=== PATIENT | male | born 1980 | race Caucasian/White ===

== ENCOUNTER 2018-06-08 19:44 | Inpatient (IN) | payer OTHER ==
[~2018-06-08] VITALS: Ht 165.1 cm; Wt 77.7 kg
[2018-06-08] MEDS ORDERED: ACETAMINOPHEN 500 MG TAB PO STA (23:19)
[2018-06-08] MEDS ORDERED: IBUPROFEN 600 MG TAB PO ONE (23:30)
[2018-06-09] MEDS ORDERED: SODIUM CHLORIDE 0.9% 1L BAG IV* STA (02:27)
[2018-06-09] MEDS ORDERED: CEFTRIAXONE 1 GM/50 ML (PMX) 50 ML IVPB STA (02:27)
--- NOTE | 2018-06-09 02:30 | ERD ---
ER Documentation Chief Complaint Chief Complaint URINE PROBLEM, EAR PAIN, FEVER HPI History of Present Illness: Patient coming in today with complaint of painful urination, decreased urination, ear pain, fever, right flank pain, decreased appetite, fatigue. She reporting episode of night sweats and drenching his close approximately 3 days ago due to fever. Patient reports being diagnosed with urinary tract infection approximately 3 weeks ago by PCP, unknown antibiotic given. Patient reports completing course of antibiotics but fevers persisted, so he went back to PCP 1 week ago; patient was referred to urologist but unable to get an appointment until August. patient reports he did feel he had complete resolution of urinary tract infection for completion of antibiotics course. Patient denies cold-like symptoms, shortness of breath, chest pain. Patient reports feeling fatigue since approximately March 2018; it was thought to be cardiac related, reports he had to have a cardiac cath and they stated he did not have any blockages in heart so they continue him on hypertension medications. Patient reports PCP informed him that flank pain is more than likely related to musculoskeletal due to patient having to lift lots of heavy items at work. At home pharmacological/nonpharmacological treatment for symptoms: denies Denies social concerns; Denies recent foreign travel ROS All systems reviewed and are negative except as per history of present illness. Allergies Allergies: Coded Allergies: No Known Allergy (Unverified , 06/08/18) PMhx/Soc History of Surgery: Yes (GUM SX 1 WEEK AGO) Hx Cardiac Disorders: Yes (HTN, HLD) Hx Alcohol Use: No Hx Substance Use: No Hx Tobacco Use: No Smoking Status: Never smoker FmHx Family History: diabetes, coronary disease (As you know when I think about it then do looks sick he looks sick) Physical Exam Vitals Vital Signs Date Temp Pulse Resp B/P (MAP) Pulse Ox O2 O2 Flow FiO2 Time Delivery Rate 06/09/18 98.2 76 18 124/67 99 Room Air 02:49 (86) 06/08/18 100.1 91 18 150/86 99 20:14 (107) Physical Exam GENERAL: The patient is well-nourished, in no acute distress, HEENT: Atraumatic. Conjunctivae are pink. Pupils equal, round, and reactive to light. There is no scleral icterus. No erythema to tympanic membranes, no bulging, no perforation. Oropharynx clear without tonsillar exudate. NECK: Full range of motion. C-spine is soft and supple. There is no meningismus. There is cervical lymphadenopathy. CHEST: Clear to auscultation bilaterally. There are no rales, wheezes or rhonchi. HEART: Regular rate and rhythm. No murmurs, clicks, rubs or gallops. ABDOMEN: Soft, non tender, non distended. Normal bowel sounds EXTREMITIES: No cyanosis, or edema NEURO: Awake and alert, appropriate for age, no irritable cry Result Diagram: 06/09/18 0111 06/09/18 0111 Results 24 hrs Laboratory Tests Test 06/08/18 23:27 06/09/18 01:11 06/09/18 02:35 Urine Color YELLOW Urine Clarity SLIGHTLY CLOUDY Urine pH 6.0 Urine Specific [place] 1.004 Urine Ketones NEGATIVE mg/dL Urine Nitrite NEGATIVE mg/dL Urine Bilirubin NEGATIVE mg/dL Urine Urobilinogen NEGATIVE mg/dL Urine Leukocyte Esterase NEGATIVE Maurisio/ul Urine Microscopic RBC 6 /HPF Urine Microscopic WBC 3 /HPF Urine Bacteria FEW /HPF Urine Mucus FEW /HPF Urine Hemoglobin 1+ mg/dL Urine Glucose NEGATIVE mg/dL Urine Total Protein NEGATIVE mg/dl White Blood Count 56.8 10^3/ul Red Blood Count 3.21 10^6/ul Hemoglobin 9.6 g/dl Hematocrit 29.8 % Mean Corpuscular Volume 92.8 fl Mean Corpuscular Hemoglobin 29.9 pg Mean Corpuscular 32.2 g/dl Hemoglobin Concent Red Cell Distribution Width 14.4 % Platelet Count 101 10^3/UL Mean Platelet Volume 9.0 fl Immature Granulocytes % 0.000 % Neutrophils % % Segmented Neutrophils 3 % % (Manual) Lymphocytes % % Lymphocytes % (Manual) 22 % Monocytes % % Monocytes % (Manual) 64 % Eosinophils % % Basophils % % Blast Cells % (Manual) 11.0 % Nucleated Red Blood Cells % 0.0 /100WBC Immature Granulocytes # 0.000 10^3/ul Neutrophils # 10^3/ul Lymphocytes (Manual) 12.4 10^3/ul Lymphocytes # 10^3/ul Monocytes # 10^3/ul Monocytes # (Manual) 36.3 10^3/ul Eosinophils # 10^3/ul Basophils # 10^3/ul Nucleated Red Blood Cells # 10^3/ul Platelet Estimate DECREASED Giant Platelets 1 % Sodium Level 141 mmol/L Potassium Level 3.6 mmol/L Chloride Level 100 mmol/L Carbon Dioxide Level 30 mmol/L Anion Gap 11 Blood Urea Nitrogen 20 mg/dl Creatinine 2.56 mg/dl Est Glomerular Filtrat 28 mL/min Rate mL/min Glucose Level 114 mg/dl Calcium Level 8.9 mg/dl Total Bilirubin 0.1 mg/dl Direct Bilirubin 0.00 mg/dl Indirect Bilirubin 0.1 mg/dl Aspartate Amino 27 IU/L Transf (AST/SGOT) Alanine 27 IU/L Aminotransferase (ALT/SGPT) Alkaline Phosphatase 70 IU/L Total Protein 7.9 g/dl Albumin 3.9 g/dl Globulin 4.00 g/dl Albumin/Globulin Ratio 0.97 Lipase 97 U/L Prothrombin Time 15.2 Sec Prothrombin Time Ratio 1.2 INR International 1.19 Normalized Ratio Activated Partial Thromboplast 33.0 Sec Time Lactic Acid Level 0.9 mmol/L Troponin I < 0.012 ng/ml Current Medications Medications Dose Sig/Daryl Start Time Status Last (Trade) Ordered Route PRN Stop Time Admin Dose Reason Admin 1,000 mg ONCE STAT 06/08/18 DC 06/08/18 Acetaminophen PO 23:19 23:30 (Tylenol 06/08/18 23:21 Tab) Ibuprofen 600 mg ONCE ONCE 06/08/18 DC 06/08/18 (Motrin) PO 23:30 23:30 06/08/18 23:31 Sodium 2,340 ml BOLUS OVER 2 06/09/18 DC 06/09/18 Chloride HOURS STAT 02:27 02:49 (NS) IV* 06/09/18 02:38 Ceftriaxone 50 ml @ ONCE STAT 06/09/18 DC 06/09/18 Sodium 100 mls/hr IVPB 02:27 02:49 06/09/18 02:56 Procedures/MDM ED course includes a thorough examination and history. Medications: Ibuprofen and acetaminophen for fever Imaging: ---- Labs: Urinalysis Patient reassessment: Urinalysis showing RBCs, hemoglobin, small amount of white blood cells; no concern for urinary tract infection. Due to patient with persistent right flank pain and unable to reproduce pain with palpation or percussion, will do blood labs and CT abdomen pelvis. Suspicion for infectious kidney stone due to RBCs and blood and persistent fevers. ED physician consultation @ 02:20: Spoke to Dr. Zohbarbian regarding lab findings. Significant leukocytosis. CT results pending, multiple calls made to [facility]. Will initiate sepsis protocol. Patient updated of plan of care. ED physician consultation at 0330: CT Results reviewed with ED attending physician. Plan of care discussed for admission. Will decrease IV fluids administration to only 1000 mL of NS, nurse is notified. Patient reassessment 04:15: Spoke to patient regarding CT results. Patient agrees with plan of care of hospitalization. Patient reports able to urinate, has had 2 episodes of urination since IV fluids administration. No respiratory distress, nontoxic. Disposition for admission. Departure Diagnosis: Primary Impression: Leukocytosis Leukocytosis type: unspecified Qualified Codes: D72.829 - Elevated white blood cell count, unspecified Additional Impressions: DAVE (acute kidney injury) Lung nodule < 6cm on CT Condition: ANGEL Walters NP Jun 09, 2018 02:30
[2018-06-09] MEDS ORDERED: HYDROCODONE/APAP (5/325) TAB PO PRN (09:00)
[2018-06-09] MEDS ORDERED: ACETAMINOPHEN 500 MG TAB PO PRN (09:00)
[2018-06-09] MEDS ORDERED: ENOXAPARIN 30 MG/0.3 ML SYG SC SCH (09:00)
[2018-06-09] MEDS ORDERED: ONDANSETRON 4 MG INJ IV PRN (09:00)
[2018-06-09] MEDS ORDERED: DOXY100T20 PO (09:48)
[2018-06-09] MEDS ORDERED: AMLO2.5T78 PO (09:49)
[2018-06-09] MEDS ORDERED: ATOR40TA68 PO (09:49)
[2018-06-09] MEDS ORDERED: ASPI-817 PO (09:49)
[2018-06-09] MEDS ORDERED: LOSA50TA14 PO (09:50)
[2018-06-09 10:23] VITALS: Ht 165.1 cm; Wt 77.7 kg
[2018-06-09] MEDS: SOD CHLORIDE 0.45% 1,000 ML IV SCH ×2 (13:10→19:30)
[2018-06-09 13:37] VITALS: BP 119/62; PULSE 87; RESP 18
--- NOTE | 2018-06-09 14:55 | QN ---
Documentation Comment ID consult requested. Dr. Prado will see pt later today or in AM. Thank you! RIO VELIZ NP Jun 09, 2018 14:55
[2018-06-09] MEDS: CHLORHEXIDINE GLUCONATE 15 ML UD CUP MT SCH ×2 (15:10→21:29)
[2018-06-09] MEDS ORDERED: SPECIAL NON-STANDARD MEDICATION IV STA (15:47)
--- NOTE | 2018-06-09 15:47 | CONS ---
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 # Acute myeloid leukemia -Reviewed smear with Dr. Alan and confirmed it is an acute leukemic process likely myeloid. -Increased IVF to 175 ccs. -Patient with elevated creatinine and uric acid is in tumor lysis syndrome. Nephrology is on board. -Placed patient on allopurinol 300 mg po qdaily and will give one dose of rasburicase 7.5 mg IV x 1. -Discussed with patient that he will need induction chemotherapy at a higher level of care tertiary center. -Discussed with patient that if he tolerates induction therapy; prognosis is fair and he can be cured with chemotherapy and bone marrow transplant. -Discussed that patient also had an increased risk of infection due to acute chandana kemia. # Tumor lysis syndrome -Continue IVF 175 ccs. -Rasburicase given. -Allopurinol 300 mg po qdaily. -Nephrology on board. -Transfer to higher level of care tertiary havre. Thank you to Dr. Bermudez for allowing us to participate in the care of this patient. Please feel free to contact our team for further questions. Consultation Date/Type/Reason Admit Date/Time Jun 09, 2018 at 03:32 Date of Consultation: Jun 09, 2018 Type of Consult Hematology/Oncology Reason for Consultation leukocytosis concern for AML Date/Time of Note DATE: 06/09/18 TIME: 15:39 Hx of Present Illness 38 yo M with PMH HTN was in his normal state of health until three weeks prior to admission when he started having night sweats, fevers, along with chills with dysuria. Patient stated that he thought he had a urinary tract infection and went to his PCP who gave him antibiotics but this did not take away any symptoms. The patient states he also developed a gum infection 2-3 days prior to infection and he had to have surgery for this. He denies any bone pain. He states he still has dysuria upon urination at this time. Denies any bleeding or bruising. Denies any appetite or weight loss. Denies any headaches, chest pain or shortness of breath. Upon admission it was noted that his WBC was 52k with predominant monocytes along with 20% blasts. Dr. Diamond evaluated the peripheral smear with confirmation that it is an evolving likely AML with 20% blasts. Patient also with thrombocytopenia. CT scan showed some slightly enlarged LND in the mediastinal and inguinal areas with splenomegaly with a small nodule in the lung. PMH: as above PSxH: gum surgery SH: Denies tobacco, ETOH, or IVDA. FH: Sister has some type of cancer near the heart. Meds: see list All: NKDA Constitutional: chills, diaphoresis, febrile Eyes: no complaints ENT: no complaints Respiratory: no complaints Cardiovascular: no complaints Gastrointestinal: no complaints Genitourinary: dysuria Musculoskeletal: no complaints Skin: no complaints Neurologic: no complaints Endocrine: no complaints Lymphatic: no complaints Psychological: no complaints, nl mood/affect Immunologic: no complaints Past Medical History Home Meds Reported Medications Losartan Potassium* (Losartan Potassium*) 50 Mg Tablet, 50 MG PO DAILY, TAB 06/09/18 Atorvastatin* (Atorvastatin*) 40 Mg Tablet, 40 MG PO QHS, #30 TAB 06/09/18 Aspirin* (Aspirin* EC) 81 Mg Tablet.dr, 81 MG PO DAILY, TAB 06/09/18 Amlodipine Besylate* (Amlodipine Besylate*) 2.5 Mg Tablet, 2.5 MG PO DAILY, #30 TAB 06/09/18 Doxycycline Hyclate* (Doxycycline Hyclate*) 100 Mg Tablet.dr, 100 MG PO BID, TAB for 10 days,start date 05/31/18 06/09/18 Medications Current Medications Sodium Chloride 1,000 ml @ 125 mls/hr Q8H IV Last administered on 06/09/18at 13:10; Admin Dose 100 MLS/HR; Start 06/09/18 at 09:00 Ceftriaxone Sodium 50 ml @ 100 mls/hr Q24H IVPB ; Start 06/10/18 at 05:00 Acetaminophen (Tylenol Tab) 500 mg Q4H PRN PO MILD PAIN(1-3)OR ELEVATED TEMP; Start 06/09/18 at 09:00 Ondansetron HCl (Zofran Inj) 4 mg Q6H PRN IV NAUSEA AND/OR VOMITING; Start 06/09/18 at 09:00 Acetaminophen/ Hydrocodone Bitart ([place] (5/325)) 1 tab Q4H PRN PO MODERATE PAIN LEVEL 4-6; Start 06/09/18 at 09:00 Chlorhexidine Gluconate (Peridex) 15 ml BID MT Last administered on 06/09/18at 15:10; Admin Dose 15 ML; Start 06/09/18 at 12:30 Allopurinol (Zyloprim) 300 mg DAILY PO ; Start 06/09/18 at 15:30 Allergies: Coded Allergies: No Known Allergy (Unverified , 06/09/18) Social History Alcohol Use: none Smoking Status: Never smoker Exam/Review of Systems Exam Vitals Vital Signs Date Temp Pulse Resp B/P (MAP) Pulse Ox O2 O2 Flow FiO2 Time Delivery Rate 06/09/18 99.8 87 18 119/62 95 13:37 (81) 06/09/18 Room Air 09:30 Constitutional: alert, oriented, well developed Psych: no complaints, nl mood/affect Head: normocephalic, atraumatic Eyes: nl conjunctiva, EOMI, nl lids, nl sclera, PERRL ENMT: nl external ears & nose, nl lips & teeth, nl nasal mucosa & septum Neck: other (mild lymphadenopathy) Respiratory: clear to auscultation, normal air movement Cardiovascular: regular rate and rhythm, nl pulses Gastrointestinal: hepatomegaly, splenomegaly Musculoskeletal: nl extremities to inspection, nl gait and stance Extremities: normal pulses Neurological: HYDROGEN TREATER II-XII intact, nl mental status, nl speech, nl strength Skin: nl turgor; No rash or lesions Lymph: enlarged Results Result Diagram: 06/09/18 0111 06/09/18 0111 Results 24hrs Laboratory Tests Test 06/08/18 23:27 06/09/18 01:11 06/09/18 02:35 06/09/18 05:24 Urine Color YELLOW Urine Clarity SLIGHTLY CLOUDY A Urine pH 6.0 Urine Specific 1.004 [place] Urine Ketones NEGATIVE Urine Nitrite NEGATIVE Urine Bilirubin NEGATIVE Urine NEGATIVE Urobilinogen Urine Leukocyte NEGATIVE Esterase Urine 6 H Microscopic RBC Urine 3 Microscopic WBC Urine Bacteria FEW A Urine Mucus FEW A Urine Hemoglobin 1+ H Urine Glucose NEGATIVE Urine Total NEGATIVE Protein White Blood 56.8 H Count Red Blood Count 3.21 L Hemoglobin 9.6 L Hematocrit 29.8 L Mean Corpuscular 92.8 Volume Mean Corpuscular 29.9 Hemoglobin Mean Corpuscular 32.2 Hemoglobin Grisel nt Red Cell 14.4 Distribution Width Platelet Count 101 L Mean Platelet 9.0 Volume Immature 0.000 L Granulocytes % Neutrophils % Segmented 0 L Neutrophils % (Manual) Lymphocytes % Lymphocytes % 8 L (Manual) Monocytes % Monocytes % 72 H (Manual) Eosinophils % Basophils % Blast Cells % 20.0 H (Manual) Nucleated Red 0.0 Blood Cells % Immature 0.000 Granulocytes # Neutrophils # Lymphocytes 4.5 H (Manual) Lymphocytes # Monocytes # Monocytes # 40.8 H (Manual) Eosinophils # Basophils # Nucleated Red Blood Cells # Pathologist Review (Hematolo gy) Platelet DECREASED Estimate Giant Platelets 1 H Path Consult LESLIE DIAMOND Signing Patholog MD ist Sodium Level 141 Potassium Level 3.6 Chloride Level 100 Carbon Dioxide 30 Level Anion Gap 11 Blood Urea 20 Nitrogen Creatinine 2.56 H Est Glomerular 28 L Filtrat Rate mL/min Glucose Level 114 Calcium Level 8.9 Total Bilirubin 0.1 L Direct Bilirubin 0.00 Indirect 0.1 Bilirubin Aspartate Amino 27 Transf (AST/SGOT ) Alanine 27 Aminotransferase (ALT/SGPT) Alkaline 70 Phosphatase Total Protein 7.9 Albumin 3.9 Globulin 4.00 H Albumin/Globulin 0.97 Ratio Lipase 97 Prothrombin Time 15.2 H Prothrombin Time 1.2 Ratio INR 1.19 International Normalized Ratio Activated 33.0 Partial Thrombop last Time Lactic Acid 0.9 1.0 Level Troponin I < 0.012 Uric Acid 11.2 H Medications Medication Current Medications Sodium Chloride 1,000 ml @ 125 mls/hr Q8H IV Last administered on 06/09/18at 13:10; Admin Dose 100 MLS/HR; Start 06/09/18 at 09:00 Ceftriaxone Sodium 50 ml @ 100 mls/hr Q24H IVPB ; Start 06/10/18 at 05:00 Acetaminophen (Tylenol Tab) 500 mg Q4H PRN PO MILD PAIN(1-3)OR ELEVATED TEMP; Start 06/09/18 at 09:00 Ondansetron HCl (Zofran Inj) 4 mg Q6H PRN IV NAUSEA AND/OR VOMITING; Start 06/09/18 at 09:00 Acetaminophen/ Hydrocodone Bitart ([place] (5/325)) 1 tab Q4H PRN PO MODERATE PAIN LEVEL 4-6; Start 06/09/18 at 09:00 Chlorhexidine Gluconate (Peridex) 15 ml BID MT Last administered on 06/09/18at 15:10; Admin Dose 15 ML; Start 06/09/18 at 12:30 Allopurinol (Zyloprim) 300 mg DAILY PO ; Start 06/09/18 at 15:30 AVINASH CLEMENT DO Jun 09, 2018 15:47
--- NOTE | 2018-06-09 16:24 | CONS ---
Assessment/Plan Assessment/Plan Assessment/Plan (Daily) 1. acute kidney injury due to ATN from Tumour lysis 2. Hyperuricemia from tumour lysis 3. Possible UTI 4. 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 Leucocytosis due to acute AML 6. h/O HTN 7. H/o HL Plan: pt is seen in Med/surge floor, BP was stable, afebrile, S/p H & O evaluation , agree with Rasburicase and Allopurinol due to tumour lysis syndrome and severe hyperuricemia Urine culture Urine studies including urine Na, urine prot/cr ration, urine eosinophisl, CK t otal Renal US to assess for CKD, to rule out hydronephrosis Thanks for consultation, I will continue to follow up Consultation Date/Type/Reason Admit Date/Time Jun 09, 2018 at 03:32 Date of Consultation: Jun 09, 2018 Type of Consult NEPHROLOGY Reason for Consultation Acute kidney injury, Tumour Lysis syndrome Requesting Provider: VINOD VALENCIA MD Date/Time of Note DATE: 06/09/18 TIME: 16:23 Hx of Present Illness 38 yo M with PMH HTN with fevers, chills, and night sweats x 3 weeks with dysuria and recent gum infection admitted to the hospital with WBC: 58 k with 20% blasts 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 pt denies h/o NSAID use, no h/o CKD/kindey stone/kiney cyst no blood in urine, no back pain, flank pain and chest pain Constitutional: febrile, other (chills ) Eyes: no complaints ENT: no complaints Respiratory: shortness of breath Cardiovascular: no complaints Gastrointestinal: pain, constipation, nausea Genitourinary: dysuria, flank pain Musculoskeletal: no complaints Skin: no complaints Neurologic: no complaints Endocrine: no complaints Lymphatic: no complaints Psychological: no complaints Immunologic: no complaints Past Medical History Medical History: high cholesterol, hypertension, other (h/o heart attack as per patient but no details availabl e) Home Meds Reported Medications Losartan Potassium* (Losartan Potassium*) 50 Mg Tablet, 50 MG PO DAILY, TAB 06/09/18 Atorvastatin* (Atorvastatin*) 40 Mg Tablet, 40 MG PO QHS, #30 TAB 06/09/18 Aspirin* (Aspirin* EC) 81 Mg Tablet.dr, 81 MG PO DAILY, TAB 06/09/18 Amlodipine Besylate* (Amlodipine Besylate*) 2.5 Mg Tablet, 2.5 MG PO DAILY, #30 TAB 06/09/18 Doxycycline Hyclate* (Doxycycline Hyclate*) 100 Mg Tablet.dr, 100 MG PO BID, TAB for 10 days,start date 05/31/18 06/09/18 Medications Current Medications Sodium Chloride 1,000 ml @ 125 mls/hr Q8H IV Last administered on 06/09/18at 13:10; Admin Dose 100 MLS/HR; Start 06/09/18 at 09:00 Ceftriaxone Sodium 50 ml @ 100 mls/hr Q24H IVPB ; Start 06/10/18 at 05:00 Acetaminophen (Tylenol Tab) 500 mg Q4H PRN PO MILD PAIN(1-3)OR ELEVATED TEMP; Start 06/09/18 at 09:00 Ondansetron HCl (Zofran Inj) 4 mg Q6H PRN IV NAUSEA AND/OR VOMITING; Start 06/09/18 at 09:00 Acetaminophen/ Hydrocodone Bitart ([place] (5/325)) 1 tab Q4H PRN PO MODERATE PAIN LEVEL 4-6; Start 06/09/18 at 09:00 Chlorhexidine Gluconate (Peridex) 15 ml BID MT Last administered on 06/09/18at 15:10; Admin Dose 15 ML; Start 06/09/18 at 12:30 Allopurinol (Zyloprim) 300 mg DAILY PO ; Start 06/09/18 at 15:30 Rasburicase 7.5 mg/Sodium Chloride 50 ml @ 100 mls/hr ONCE IVPB ; Start 06/09/18 at 18:00; Stop 06/09/18 at 23:59 Allergies: Coded Allergies: No Known Allergy (Unverified , 06/09/18) Past Surgical History Past Surgical Hx: no surgical history Family History Significant Family History: no pertinent family hx Social History Alcohol Use: none Smoking Status: Never smoker Drug Use: none Exam/Review of Systems Exam Vitals Vital Signs Date Temp Pulse Resp B/P (MAP) Pulse Ox O2 O2 Flow FiO2 Time Delivery Rate 06/09/18 99.8 87 18 119/62 95 13:37 (81) 06/09/18 Room Air 09:30 Constitutional: alert Psych: no complaints Head: normocephalic Eyes: nl conjunctiva ENMT: nl external ears & nose Neck: supple, non-tender Respiratory: clear to auscultation, normal air movement, diminished breath sounds Cardiovascular: regular rate and rhythm, nl pulses Gastrointestinal: soft, non-tender Musculoskeletal: nl extremities to inspection, muscle weakness Extremities: normal pulses Neurological: MONKEY BREEDER II-XII intact, nl mental status, nl speech, nl strength Skin: nl turgor Lymph: nl lymph nodes Results Result Diagram: 06/09/18 0111 06/09/18 0111 Results 24hrs Laboratory Tests Test 06/08/18 23:27 06/09/18 01:11 06/09/18 02:35 06/09/18 05:24 Urine Color YELLOW Urine Clarity SLIGHTLY CLOUDY A Urine pH 6.0 Urine Specific 1.004 [place] Urine Ketones NEGATIVE Urine Nitrite NEGATIVE Urine Bilirubin NEGATIVE Urine NEGATIVE Urobilinogen Urine Leukocyte NEGATIVE Esterase Urine 6 H Microscopic RBC Urine 3 Microscopic WBC Urine Bacteria FEW A Urine Mucus FEW A Urine Hemoglobin 1+ H Urine Glucose NEGATIVE Urine Total NEGATIVE Protein White Blood 56.8 H Count Red Blood Count 3.21 L Hemoglobin 9.6 L Hematocrit 29.8 L Mean Corpuscular 92.8 Volume Mean Corpuscular 29.9 Hemoglobin Mean Corpuscular 32.2 Hemoglobin Grisel nt Red Cell 14.4 Distribution Width Platelet Count 101 L Mean Platelet 9.0 Volume Immature 0.000 L Granulocytes % Neutrophils % Segmented 0 L Neutrophils % (Manual) Lymphocytes % Lymphocytes % 8 L (Manual) Monocytes % Monocytes % 72 H (Manual) Eosinophils % Basophils % Blast Cells % 20.0 H (Manual) Nucleated Red 0.0 Blood Cells % Immature 0.000 Granulocytes # Neutrophils # Lymphocytes 4.5 H (Manual) Lymphocytes # Monocytes # Monocytes # 40.8 H (Manual) Eosinophils # Basophils # Nucleated Red Blood Cells # Pathologist Review (Hematolo gy) Platelet DECREASED Estimate Giant Platelets 1 H Path Consult LESLIE DIAMOND Signing Patholog MD ist Sodium Level 141 Potassium Level 3.6 Chloride Level 100 Carbon Dioxide 30 Level Anion Gap 11 Blood Urea 20 Nitrogen Creatinine 2.56 H Est Glomerular 28 L Filtrat Rate mL/min Glucose Level 114 Calcium Level 8.9 Total Bilirubin 0.1 L Direct Bilirubin 0.00 Indirect 0.1 Bilirubin Aspartate Amino 27 Transf (AST/SGOT ) Alanine 27 Aminotransferase (ALT/SGPT) Alkaline 70 Phosphatase Total Protein 7.9 Albumin 3.9 Globulin 4.00 H Albumin/Globulin 0.97 Ratio Lipase 97 Prothrombin Time 15.2 H Prothrombin Time 1.2 Ratio INR 1.19 International Normalized Ratio Activated 33.0 Partial Thrombop last Time Lactic Acid 0.9 1.0 Level Troponin I < 0.012 Uric Acid 11.2 H Medications Medication Current Medications Sodium Chloride 1,000 ml @ 125 mls/hr Q8H IV Last administered on 06/09/18at 13:10; Admin Dose 100 MLS/HR; Start 06/09/18 at 09:00 Ceftriaxone Sodium 50 ml @ 100 mls/hr Q24H IVPB ; Start 06/10/18 at 05:00 Acetaminophen (Tylenol Tab) 500 mg Q4H PRN PO MILD PAIN(1-3)OR ELEVATED TEMP; Start 06/09/18 at 09:00 Ondansetron HCl (Zofran Inj) 4 mg Q6H PRN IV NAUSEA AND/OR VOMITING; Start 06/09/18 at 09:00 Acetaminophen/ Hydrocodone Bitart ([place] (5/325)) 1 tab Q4H PRN PO MODERATE PAIN LEVEL 4-6; Start 06/09/18 at 09:00 Chlorhexidine Gluconate (Peridex) 15 ml BID MT Last administered on 06/09/18at 15:10; Admin Dose 15 ML; Start 06/09/18 at 12:30 Allopurinol (Zyloprim) 300 mg DAILY PO ; Start 06/09/18 at 15:30 Rasburicase 7.5 mg/Sodium Chloride 50 ml @ 100 mls/hr ONCE IVPB ; Start 06/09/18 at 18:00; Stop 06/09/18 at 23:59 JORDAN ELENA MD Jun 09, 2018 16:24
[2018-06-09] MEDS: ALLOPURINOL 300 MG TAB PO SCH (16:59)
[2018-06-09] MEDS ORDERED: RASBURICASE 7.5 MG in SOD CHLORIDE 0.9% 50 ML IVPB SCH (18:00)
[2018-06-09 20:00] VITALS: BP 115/61; PULSE 90; RESP 18
[2018-06-10] MEDS: SOD CHLORIDE 0.45% 1,000 ML IV SCH ×3 (00:54→18:14)
[2018-06-10 02:00] VITALS: BP 109/58; PULSE 83; RESP 17
[2018-06-10] MEDS ORDERED: CEFTRIAXONE 1 GM/50 ML (PMX) 50 ML IVPB SCH (05:00)
[2018-06-10 07:59] VITALS: BP 104/58; PULSE 81; RESP 18
[2018-06-10] MEDS ORDERED: HYDROXYUREA 500 MG CAP PO ONE (08:00)
[2018-06-10] MEDS: ALLOPURINOL 300 MG TAB PO SCH (09:56)
[2018-06-10] MEDS: CHLORHEXIDINE GLUCONATE 15 ML UD CUP MT SCH ×2 (09:56→20:45)
--- NOTE | 2018-06-10 11:49 | CONS ---
Assessment/Plan Assessment/Plan Assessment/Plan (Daily) 1. acute kidney injury due to ATN from Tumour lysis 2. Hyperuricemia from tumour lysis 3. Possible UTI 4. 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 Leucocytosis due to acute AML 6. h/O HTN 7. H/o HL Plan: WBC 52.9- possible AML with Tumour lysis syndrome, Upgraded to higher level of care- [facility] s/p Rasburicase, on Allopurnol Na 145, BUN/Cr slightly better 14/1.86- Renal US showed Echogenic kidneys consistent with renal medical disease. Small left renal cyst. No hydronephrosis, calculus or solid mass. will follow up Consultation Date/Type/Reason Admit Date/Time Jun 09, 2018 at 03:32 Initial Consult Date 06/09/18 Type of Consult NEPHROLOGY Requesting Provider: VINOD VALENCIA MD Date/Time of Note DATE: 06/10/18 TIME: 11:49 24 HR Interval Summary Free Text/Dictation BUN/Cr improved to 14/1.86, BP stable, other electrolyte stable today Exam/Review of Systems Exam Vitals Vital Signs Date Temp Pulse Resp B/P (MAP) Pulse Ox O2 O2 Flow FiO2 Time Delivery Rate 06/10/18 97.7 81 18 104/58 95 07:59 (73) 06/09/18 Room Air 09:30 Intake and Output 06/09/18 06/09/18 06/10/18 1515:00 23:00 07:00 IntakeIntake Total 640 ml 1390 ml 1290 ml OutputOutput Total 400 ml BalanceBalance 640 ml 1390 ml 890 ml Exam Constitutional: alert, awake, on acute distress Respiratory: clear to auscultation, normal air movement, diminished breath sounds Cardiovascular: regular rate and rhythm, nl pulses Gastrointestinal: soft, non-tender Musculoskeletal: nl extremities to inspection, muscle weakness Extremities: normal pulses Neurological: TEST DESK TROUBLE LOCATOR II-XII intact, nl mental status, nl speech, nl strength Results Result Diagram: 06/10/18 0426 06/10/186 Results 24hrs Laboratory Tests Test 06/09/18 23:30 06/10/18 04:26 Urine Eosinophils % 0.0 Urine Random Sodium 93 H Urine Total Protein 33.0 H White Blood Count 52.8 H Red Blood Count 2.95 L Hemoglobin 9.0 L Hematocrit 28.1 L Mean Corpuscular Volume 95.3 Mean Corpuscular Hemoglobin 30.5 Mean Corpuscular Hemoglobin Concent 32.0 Red Cell Distribution Width 14.5 Platelet Count 91 L Mean Platelet Volume 9.2 Immature Granulocytes % 3.500 H Neutrophils % Segmented Neutrophils % (Manual) 2 L Band Neutrophils % (Manual) 1 Lymphocytes % Lymphocytes % (Manual) 7 L Reactive Lymphocytes % (Manual) 6 H Monocytes % Monocytes % (Manual) 64 H Eosinophils % Basophils % Blast Cells % (Manual) 20.0 H Nucleated Red Blood Cells % 0.1 H Immature Granulocytes # 1.860 H Neutrophils # Neutrophils # (Manual) 1.3 L Band Neutrophils # 0.5 Lymphocytes (Manual) 3.6 H Lymphocytes # Reactive Lymphocytes # 3.1 H Monocytes # Monocytes # (Manual) 33.7 H Eosinophils # Basophils # Nucleated Red Blood Cells # Platelet Estimate DECREASED Polychromasia 1+ Poikilocytosis 1+ Anisocytosis 1+ Microcytosis 1+ Tear Drop Cells 1+ Ovalocytes 1+ Sodium Level 145 H Potassium Level 3.7 Chloride Level 107 Carbon Dioxide Level 30 Anion Gap 8 Blood Urea Nitrogen 14 Creatinine 1.86 H Est Glomerular Filtrat Rate mL/min 40 L Glucose Level 113 Uric Acid < 0.5 #L Calcium Level 8.3 L Total Bilirubin 0.3 Direct Bilirubin 0.00 Indirect Bilirubin 0.3 Aspartate Amino Transf (AST/SGOT) 21 Alanine Aminotransferase (ALT/SGPT) 25 Alkaline Phosphatase 64 Lactate Dehydrogenase 820 H Total Protein 6.7 # Albumin 3.1 L Globulin 3.60 H Albumin/Globulin Ratio 0.86 Medications Medication Current Medications Sodium Chloride 1,000 ml @ 125 mls/hr Q8H IV Last administered on 06/10/18at 09:58; Admin Dose 125 MLS/HR; Start 06/09/18 at 09:00 Ceftriaxone Sodium 50 ml @ 100 mls/hr Q24H IVPB Last administered on 06/10/18at 04:57; Admin Dose 100 MLS/HR; Start 06/10/18 at 05:00 Acetaminophen (Tylenol Tab) 500 mg Q4H PRN PO MILD PAIN(1-3)OR ELEVATED TEMP; Start 06/09/18 at 09:00 Ondansetron HCl (Zofran Inj) 4 mg Q6H PRN IV NAUSEA AND/OR VOMITING; Start 06/09/18 at 09:00 Acetaminophen/ Hydrocodone Bitart ([place] (5/325)) 1 tab Q4H PRN PO MODERATE PAIN LEVEL 4-6; Start 06/09/18 at 09:00 Chlorhexidine Gluconate (Peridex) 15 ml BID MT Last administered on 06/10/18at 09:56; Admin Dose 15 ML; Start 06/09/18 at 12:30 Allopurinol (Zyloprim) 300 mg DAILY PO Last administered on 06/10/18at 09:56; A dmin Dose 300 MG; Start 06/09/18 at 15:30 JORDAN ELENA MD Jun 10, 2018 11:49
--- NOTE | 2018-06-10 13:16 | CONS ---
Assessment/Plan Assessment/Plan Hospital Course (Demo Recall) 1. Functional neutropenic fever 2. Lymphomas 3. possible uti/gum inection; query more likely related to # 2 R: hiv screen mrsa screen [place] cx empiric cefepime for now will continue to follow closely with you Consultation Date/Type/Reason Admit Date/Time Jun 09, 2018 at 03:32 [email or web address] Date of Consultation: Jun 10, 2018 Type of Consult id Reason for Consultation FEVERS, LYMPHOMA Requesting Provider: FRANCESCO RICO Date/Time of Note DATE: 06/10/18 TIME: 13:12 Hx of Present Illness is a very pleasant 38 yo male with recent complaints of possible uti, failed to improve on abx, and dental infection, failed to improve with apparent dental procedure. He presented to ER with continued fevers, chills, night sweats that had been continuing for last few weeks. He has been diagnosed with probable lymphoma. He is essentially neutropenic. He is currently on CTX. He is having some low grade temps. Constitutional: no complaints, improved; No chills, No diaphoresis, No disoriented, No febrile, No poor po, No requiring IVF, No requiring O2, No other Eyes: No no complaints, No pain, No discharge, No redness, No visual change, No other ENT: No no complaints, No bleeding, No pain, No congestion, No discharge, No dysphagia, No sore throat, No other Respiratory: No no complaints, No pain, No cough, No pleuritic pain, No shortness of breath, No sputum, No wheezing, No other Cardiovascular: No no complaints, No chest pain, No edema, No lightheadedness, No orthopenea, No palpitations, No paroxysmal nocturnal dyspnea, No other Gastrointestinal: No no complaints, No pain, No blood, No constipation, No decreased appetite, No diarrhea, No flatus, No nausea, No passing stool, No vomiting, No other Genitourinary: No no complaints, No bleeding, No dysuria, No discharge, No flank pain, No hematuria, No other Musculoskeletal: No no complaints, No back pain, No bone/joint pain, No neck pain, No restricted range of motion, No swelling, No other Skin: No no complaints, No bruising, No erythema, No laceration, No pruritis, N o rash, No skin lesions, No other Endocrine: No no complaints, No polyuria, No polydypsia, No dry skin, No temp intolerance, No other Lymphatic: No no complaints, No adenopathy, No tender nodes, No lymphadema, No other Psychological: No no complaints, No nl mood/affect, No anxiety, No confusion, No depression, No suicidal, No other Immunologic: No no complaints, No immunodeficiency, No pruritis, No rhinitis, No urticaria, No other Past Medical History Medical History: high cholesterol, hypertension, other (h/o heart attack as per patient but no details availabl e) Home Meds Reported Medications Losartan Potassium* (Losartan Potassium*) 50 Mg Tablet, 50 MG PO DAILY, TAB 06/09/18 Atorvastatin* (Atorvastatin*) 40 Mg Tablet, 40 MG PO QHS, #30 TAB 06/09/18 Aspirin* (Aspirin* EC) 81 Mg Tablet.dr, 81 MG PO DAILY, TAB 06/09/18 Amlodipine Besylate* (Amlodipine Besylate*) 2.5 Mg Tablet, 2.5 MG PO DAILY, #30 TAB 06/09/18 Doxycycline Hyclate* (Doxycycline Hyclate*) 100 Mg Tablet.dr, 100 MG PO BID, TAB for 10 days,start date 05/31/18 06/09/18 Medications Current Medications Sodium Chloride 1,000 ml @ 125 mls/hr Q8H IV Last administered on 06/10/18at 09:58; Admin Dose 125 MLS/HR; Start 06/09/18 at 09:00 Acetaminophen (Tylenol Tab) 500 mg Q4H PRN PO MILD PAIN(1-3)OR ELEVATED TEMP; Start 06/09/18 at 09:00 Ondansetron HCl (Zofran Inj) 4 mg Q6H PRN IV NAUSEA AND/OR VOMITING; Start 06/09/18 at 09:00 Acetaminophen/ Hydrocodone Bitart ([place] (5/325)) 1 tab Q4H PRN PO MODERATE PAIN LEVEL 4-6; Start 06/09/18 at 09:00 Chlorhexidine Gluconate (Peridex) 15 ml BID MT Last administered on 06/10/18at 09:56; Admin Dose 15 ML; Start 06/09/18 at 12:30 Allopurinol (Zyloprim) 300 mg DAILY PO Last administered on 06/10/18at 09:56; Admin Dose 300 MG; Start 06/09/18 at 15:30 Cefepime HCl 50 ml @ 100 mls/hr Q12 IVPB ; Start 06/10/18 at 21:00; Status UNV Allergies: Coded Allergies: No Known Allergy (Unverified , 06/09/18) Past Surgical History Past Surgical Hx: no surgical history Social History Alcohol Use: none Smoking Status: Never smoker Drug Use: none Exam/Review of Systems Exam Vitals Vital Signs Date Temp Pulse Resp B/P (MAP) Pulse Ox O2 O2 Flow FiO2 Time Delivery Rate 06/10/18 97.7 81 18 104/58 95 07:59 (73) 06/09/18 Room Air 09:30 Intake and Output 06/09/18 06/09/18 06/10/18 1414:59 22:59 06:59 IntakeIntake Total 640 ml 1390 ml 1290 ml OutputOutput Total 400 ml BalanceBalance 640 ml 1390 ml 890 ml Constitutional: alert, oriented, well developed Psych: no complaints, nl mood/affect Head: normocephalic, atraumatic Eyes: nl conjunctiva, EOMI, nl lids, nl sclera, PERRL ENMT: nl external ears & nose, nl lips & teeth, nl nasal mucosa & septum Neck: supple, non-tender Respiratory: clear to auscultation, normal air movement Cardiovascular: regular rate and rhythm, nl pulses Musculoskeletal: nl extremities to inspection, nl gait and stance Neurological: VEGETABLE HANDLER II-XII intact, nl mental status, nl speech, nl strength Results Result Diagram: 06/10/18 0426 06/10/18 0426 Results 24hrs Laboratory Tests Test 06/09/18 23:30 06/10/18 04:26 Urine Eosinophils % 0.0 Urine Random Sodium 93 H Urine Total Protein 33.0 H White Blood Count 52.8 H Red Blood Count 2.95 L Hemoglobin 9.0 L Hematocrit 28.1 L Mean Corpuscular Volume 95.3 Mean Corpuscular Hemoglobin 30.5 Mean Corpuscular Hemoglobin Concent 32.0 Red Cell Distribution Width 14.5 Platelet Count 91 L Mean Platelet Volume 9.2 Immature Granulocytes % 3.500 H Neutrophils % Segmented Neutrophils % (Manual) 2 L Band Neutrophils % (Manual) 1 Lymphocytes % Lymphocytes % (Manual) 7 L Reactive Lymphocytes % (Manual) 6 H Monocytes % Monocytes % (Manual) 64 H Eosinophils % Basophils % Blast Cells % (Manual) 20.0 H Nucleated Red Blood Cells % 0.1 H Immature Granulocytes # 1.860 H Neutrophils # Neutrophils # (Manual) 1.3 L Band Neutrophils # 0.5 Lymphocytes (Manual) 3.6 H Lymphocytes # Reactive Lymphocytes # 3.1 H Monocytes # Monocytes # (Manual) 33.7 H Eosinophils # Basophils # Nucleated Red Blood Cells # Platelet Estimate DECREASED Polychromasia 1+ Poikilocytosis 1+ Anisocytosis 1+ Microcytosis 1+ Tear Drop Cells 1+ Ovalocytes 1+ Sodium Level 145 H Potassium Level 3.7 Chloride Level 107 Carbon Dioxide Level 30 Anion Gap 8 Blood Urea Nitrogen 14 Creatinine 1.86 H Est Glomerular Filtrat Rate mL/min 40 L Glucose Level 113 Uric Acid < 0.5 #L Calcium Level 8.3 L Total Bilirubin 0.3 Direct Bilirubin 0.00 Indirect Bilirubin 0.3 Aspartate Amino Transf (AST/SGOT) 21 Alanine Aminotransferase (ALT/SGPT) 25 Alkaline Phosphatase 64 Lactate Dehydrogenase 820 H Total Protein 6.7 # Albumin 3.1 L Globulin 3.60 H Albumin/Globulin Ratio 0.86 Medications Medication Current Medications Sodium Chloride 1,000 ml @ 125 mls/hr Q8H IV Last administered on 06/10/18at 09:58; Admin Dose 125 MLS/HR; Start 06/09/18 at 09:00 Acetaminophen (Tylenol Tab) 500 mg Q4H PRN PO MILD PAIN(1-3)OR ELEVATED TEMP; Start 06/09/18 at 09:00 Ondansetron HCl (Zofran Inj) 4 mg Q6H PRN IV NAUSEA AND/OR VOMITING; Start 06/09/18 at 09:00 Acetaminophen/ Hydrocodone Bitart ([place] (5/325)) 1 tab Q4H PRN PO MODERATE PAIN LEVEL 4-6; Start 06/09/18 at 09:00 Chlorhexidine Gluconate (Peridex) 15 ml BID MT Last administered on 06/10/18at 09:56; Admin Dose 15 ML; Start 06/09/18 at 12:30 Allopurinol (Zyloprim) 300 mg DAILY PO Last administered on 06/10/18at 09:56; Admin Dose 300 MG; Start 06/09/18 at 15:30 Cefepime HCl 50 ml @ 100 mls/hr Q12 IVPB ; Start 06/10/18 at 21:00; Status UNV KEELY COLES MD Jun 10, 2018 13:16
[2018-06-10 14:00] VITALS: BP 110/60; PULSE 77; RESP 17
[2018-06-10] MEDS: AMLODIPINE 2.5 MG TAB PO SCH (14:30)
[2018-06-10] MEDS ORDERED: LOSARTAN 50 MG TAB PO SCH (14:30)
--- NOTE | 2018-06-10 14:39 | HP ---
Date/Time of Note Date/Time of Note DATE: 06/09/18 TIME: 12:33 Assessment/Plan VTE Prophylaxis Pharmacological prophylaxis: NA/contraindicated, other Pharm contraindication: thrombocytopenia, other Lines/Catheters IV [facility] Saline Lock Assessment/Plan Assessment/Plan - Leucocytosis due to acute AML - ID consult- Dr Prado notified - SP cardiac cath 03/2018; no blocakge reported by patient (done when patient has c/o severe fatigue) - Possible UTI -acute kidney injury due to ATN from Tumour lysis- Cr 2.56 -Lung nodule < 6cm on CT - Oncology Consult- Dr Sibley notified - 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- Blast CELLS 20% - Nephrology consult- Dr Lazara Owens notified - Hyperuricemia from tumour lysis - started on Allopurinol by Dr Sibley -Thrombocytopenia -per hematology -Aspirin on hold - Hx Hypertension - resume Amlodipine, hold Losartan 2/2 to elevated Cr - Hx Hyperleptinemia - resume Lovastatin - Current Smoker - Provide smoking cessation Patient seen in collaboration with Dr Haque Result Diagram: 06/09/18 0111 06/09/18 0111 Results 24hrs Laboratory Tests Test 06/08/18 23:27 06/09/18 01:11 06/09/18 02:35 06/09/18 05:24 Urine Color YELLOW Urine Clarity SLIGHTLY CLOUDY A Urine pH 6.0 Urine Specific 1.004 Painter Urine Ketones NEGATIVE Urine Nitrite NEGATIVE Urine Bilirubin NEGATIVE Urine NEGATIVE Urobilinogen Urine Leukocyte NEGATIVE Esterase Urine Microscopic 6 H RBC Urine Microscopic 3 WBC Urine Bacteria FEW A Urine Mucus FEW A Urine Hemoglobin 1+ H Urine Glucose NEGATIVE Urine Total NEGATIVE Protein White Blood Count 56.8 H Red Blood Count 3.21 L Hemoglobin 9.6 L Hematocrit 29.8 L Mean Corpuscular 92.8 Volume Mean Corpuscular 29.9 Hemoglobin Mean Corpuscular 32.2 Hemoglobin Concen t Red Cell 14.4 Distribution Width Platelet Count 101 L Mean Platelet 9.0 Volume Immature 0.000 L Granulocytes % Neutrophils % Segmented 3 L Neutrophils % (Manual) Lymphocytes % Lymphocytes % 22 (Manual) Monocytes % Monocytes % 64 H (Manual) Eosinophils % Basophils % Blast Cells % 11.0 H (Manual) Nucleated Red 0.0 Blood Cells % Immature 0.000 Granulocytes # Neutrophils # Lymphocytes 12.4 H (Manual) Lymphocytes # Monocytes # Monocytes # 36.3 H (Manual) Eosinophils # Basophils # Nucleated Red Blood Cells # Platelet Estimate DECREASED Giant Platelets 1 H Sodium Level 141 Potassium Level 3.6 Chloride Level 100 Carbon Dioxide 30 Level Anion Gap 11 Blood Urea 20 Nitrogen Creatinine 2.56 H Est Glomerular 28 L Filtrat Rate mL/min Glucose Level 114 Calcium Level 8.9 Total Bilirubin 0.1 L Direct Bilirubin 0.00 Indirect 0.1 Bilirubin Aspartate Amino 27 Transf (AST/SGOT) Alanine 27 Aminotransferase (ALT/SGPT) Alkaline 70 Phosphatase Total Protein 7.9 Albumin 3.9 Globulin 4.00 H Albumin/Globulin 0.97 Ratio Lipase 97 Prothrombin Time 15.2 H Prothrombin Time 1.2 Ratio INR International 1.19 Normalized Ratio Activated 33.0 Partial Thrombopl ast Time Lactic Acid Level 0.9 1.0 Troponin I < 0.012 HPI/ROS Admit Date/Time Admit Date/Time Jun 09, 2018 at 03:32 Hx of Present Illness HPI This is a 38 yers old male patient got admitted with c/o with complaint of painful urination, decreased urination, ear pain, fever, right flank pain, decreased appetite, fatigue. He c/o fever; night sweats 3 days ago due to fever. Patient was seen by his PCP and he was diagnosed with urinary tract infection approximately 3 weeks ago and antibiotic given. Patient reported antibiotics were ineffective and fevers persisted. He was his PCP again 1 week ago and was referred to urologist and was waiting to him until August. Patient denies , chest pain, cold-like symptoms, shortness of breath, headache, palpitations, focal weakness/ numbness; any calf pain abdominal pain, nausea/vomitting, bloody stool. Patient reports feeling fatigue since approximately March 2018; it was thought to be cardiac related, reports he had to have a cardiac cath and they stated he did not have any blockages in heart so they continue him on hypertension medications. Patient reports PCP informed him that flank pain is more than likely related to musculoskeletal due to patient having to lift lots of heavy items at work.At home pharmacological/non pharmacological treatment for symptoms: denies Denies social concerns; Denies recent foreign travel. Denies any fall/trauma. Denies bleeding from any body orifices. Upon admission - WBC 56k with predominant monocytes along with 20% blasts. - Platelets- 101 thrombocytopenia -CT scan showed some slightly enlarged LND in the mediastinal and inguinal areas with splenomegaly with a small nodule in the lung. Patient is admitted under Dr Bermudez for further treatment/evaluation. Oncology , Infectious disease, Nephrology consults were obtained. Dw Dr Sibley; patient needs high level of care - needs Induction chemotherapy. Per Dr Sibley he dw Dr. Sauceda who evaluated patient's peripheral smear and confirmed that it is an evolving likely AML with 20% blasts. ROS All systems reviewed and are negative except as per history of present illness. Allergies No Known Allergy (Unverified , 06/08/18) ROS Constitutional: other (generelized) Eyes: no complaints ENT: no complaints Respiratory: no complaints Cardiovascular: no complaints Gastrointestinal: decreased appetite Genitourinary: dysuria Musculoskeletal: no complaints Skin: bruising Neurologic: no complaints Endocrine: no complaints Lymphatic: no complaints Psychological: nl mood/affect PMH/Family/Social Past Medical History PMhx/Soc History of Surgery: Yes (GUM SX 1 WEEK AGO) Hx Cardiac Disorders: Yes (HTN, HLD) Hx Alcohol Use: No Hx Substance Use: No Hx Tobacco Use: No Smoking Status: Never smoker FmHx Family History: diabetes, coronary disease Medical History: high cholesterol, hypertension, other (Heart Attack) Medications Current Medications Sodium Chloride 1,000 ml @ 100 mls/hr Q10H IV ; Start 06/09/18 at 09:00 Ceftriaxone Sodium 50 ml @ 100 mls/hr Q24H IVPB ; Start 06/10/18 at 05:00 Acetaminophen (Tylenol Tab) 500 mg Q4H PRN PO MILD PAIN(1-3)OR ELEVATED TEMP; Start 06/09/18 at 09:00 Ondansetron HCl (Zofran Inj) 4 mg Q6H PRN IV NAUSEA AND/OR VOMITING; Start 06/09/18 at 09:00 Acetaminophen/ Hydrocodone Bitart ([place] (5/325)) 1 tab Q4H PRN PO MODERATE PAIN LEVEL 4-6; Start 06/09/18 at 09:00 Chlorhexidine Gluconate (Peridex) 15 ml BID MT ; Start 06/09/18 at 12:30 Coded Allergies: No Known Allergy (Unverified , 06/09/18) Past Surgical History Gum SURGERY Past Surgical Hx: other (SP heart cath -reported; Gum surgery) Family History Significant Family History: cancer Social History Alcohol Use: rarely Smoking Status: Current some day smoker Drug Use: none Exam/Review of Systems Vital Signs Vitals Vital Signs Date Temp Pulse Resp B/P (MAP) Pulse Ox O2 O2 Flow FiO2 Time Delivery Rate 06/09/18 79 18 123/70 98 Room Air 09:30 (87) 06/09/18 99.0 06:45 Exam Constitutional: alert, well developed Psych: nl mood/affect Head: atraumatic Eyes: EOMI, nl lids, nl sclera ENMT: nl external ears & nose, other (gums-SP GUM SUREGRY; no bleeding noted) Neck: non-tender Respiratory: clear to auscultation Cardiovascular: nl pulses, other (s1s2) Gastrointestinal: soft, hepatomegaly, splenomegaly Musculoskeletal: nl extremities to inspection Extremities: normal pulses Neurological: nl mental status, nl speech Skin: ecchymosis (generelized), other Lymph: other (Lyphadenopathy- mild) FRANCESCO RICO Jun 09, 2018 12:44
--- NOTE | 2018-06-10 14:52 | CONS ---
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 # Acute myeloid leukemia -WBC slightly improved. -Hydrea 2 grams given x 1 to control proliferation of blasts. -Flow cytometry also has confirmed AML with about 30% blasts. -Reviewed smear with Dr. Alan and confirmed it is an AML. -Continue IVF to 175 ccs. -Patient with elevated creatinine and uric acid is in tumor lysis syndrome. Nephrology is on board. -Continue allopurinol and rasburicase has been effective with uric acid < 0.1. -Re-discussed with patient that he will need induction chemotherapy at a higher level of care tertiary center, likely [facility]. Discussed with attending physician at [facility] and call center. senior project manager is on board. -Re-discussed with patient that if he tolerates induction therapy; prognosis is fair and he can be cured with chemotherapy and bone marrow transplant. -Re-discussed that patient also had an increased risk of infection due to acute leukemia. # Tumor lysis syndrome -Creatinine improved. -Continue IVF 175 ccs. -Rasburicase given and effective. -Allopurinol 300 mg po qdaily. -Nephrology on board. -Transfer to higher level of care tertiary center. Thank you to Dr. Bermudez for allowing us to participate in the care of this patient. Please feel free to contact our team for further questions. Consultation Date/Type/Reason Admit Date/Time Jun 09, 2018 at 03:32 Initial Consult Date 06/10/18 Type of Consult Hematology/Oncology Reason for Consultation acute leukemia Requesting Provider: FRANCESCO RICO Date/Time of Note DATE: 06/10/18 TIME: 14:51 24 HR Interval Summary Free Text/Dictation 38 yo M with PMH HTN was in his normal state of health until three weeks prior to admission when he started having night sweats, fevers, along with chills with dysuria. Patient stated that he thought he had a urinary tract infection and went to his PCP who gave him antibiotics but this did not take away any symptoms. The patient states he also developed a gum infection 2-3 days prior to infection and he had to have surgery for this. He denies any bone pain. He states he still has dysuria upon urination at this time. Denies any bleeding or bruising. Denies any appetite or weight loss. Denies any headaches, chest pain or shortness of breath. Upon admission it was noted that his WBC was 52k with predominant monocytes along with 20% blasts. Dr. Sauceda evaluated the peripheral smear with confirmation that it is an evolving likely AML with 20% blasts. Patient also with thrombocytopenia. CT scan showed some slightly enlarged LND in the mediastinal and inguinal areas with splenomegaly with a small nodule in the lung. S: Patient states he is feeling about the same. He states dysuria about the same as well. He understands the plan and is awaiting transfer. Constitutional: no complaints Exam/Review of Systems Exam Vitals Vital Signs Date Temp Pulse Resp B/P (MAP) Pulse Ox O2 O2 Flow FiO2 Time Delivery Rate 06/10/18 97.7 81 18 104/58 95 07:59 (73) 06/09/18 Room Air 09:30 Intake and Output 06/09/18 06/09/18 06/10/18 1515:00 23:00 07:00 IntakeIntake Total 640 ml 1390 ml 1290 ml OutputOutput Total 400 ml BalanceBalance 640 ml 1390 ml 890 ml Constitutional: alert, oriented, well developed Psych: no complaints, nl mood/affect Head: normocephalic, atraumatic Eyes: nl conjunctiva, EOMI, nl lids, nl sclera, PERRL ENMT: nl external ears & nose, nl lips & teeth, nl nasal mucosa & septum Neck: supple, non-tender Respiratory: clear to auscultation, normal air movement Cardiovascular: regular rate and rhythm, nl pulses Gastrointestinal: soft, non-tender, hepatomegaly, splenomegaly Musculoskeletal: nl extremities to inspection, nl gait and stance Extremities: normal pulses Neurological: RED CROSS WORKER II-XII intact, nl mental status, nl speech, nl strength Skin: nl turgor; No rash or lesions Lymph: enlarged Results Result Diagram: 06/10/18 0426 06/10/18 0426 Results 24hrs Laboratory Tests Test 06/09/18 23:30 06/10/18 04:26 06/10/18 13:23 Urine Eosinophils % 0.0 Urine Random Sodium 93 H Urine Total Protein 33.0 H White Blood Count 52.8 H Red Blood Count 2.95 L Hemoglobin 9.0 L Hematocrit 28.1 L Mean Corpuscular Volume 95.3 Mean Corpuscular Hemoglobin 30.5 Mean Corpuscular Hemoglobin Concent 32.0 Red Cell Distribution Width 14.5 Platelet Count 91 L Mean Platelet Volume 9.2 Immature Granulocytes % 3.500 H Neutrophils % Segmented Neutrophils % (Manual) 2 L Band Neutrophils % (Manual) 1 Lymphocytes % Lymphocytes % (Manual) 7 L Reactive Lymphocytes % (Manual) 6 H Monocytes % Monocytes % (Manual) 64 H Eosinophils % Basophils % Blast Cells % (Manual) 20.0 H Nucleated Red Blood Cells % 0.1 H Immature Granulocytes # 1.860 H Neutrophils # Neutrophils # (Manual) 1.3 L Band Neutrophils # 0.5 Lymphocytes (Manual) 3.6 H Lymphocytes # Reactive Lymphocytes # 3.1 H Monocytes # Monocytes # (Manual) 33.7 H Eosinophils # Basophils # Nucleated Red Blood Cells # Platelet Estimate DECREASED Polychromasia 1+ Poikilocytosis 1+ Anisocytosis 1+ Microcytosis 1+ Tear Drop Cells 1+ Ovalocytes 1+ Sodium Level 145 H Potassium Level 3.7 Chloride Level 107 Carbon Dioxide Level 30 Anion Gap 8 Blood Urea Nitrogen 14 Creatinine 1.86 H Est Glomerular Filtrat Rate mL/min 40 L Glucose Level 113 Uric Acid < 0.5 #L Calcium Level 8.3 L Total Bilirubin 0.3 Direct Bilirubin 0.00 Indirect Bilirubin 0.3 Aspartate Amino Transf (AST/SGOT) 21 Alanine Aminotransferase (ALT/SGPT) 25 Alkaline Phosphatase 64 Lactate Dehydrogenase 820 H Total Protein 6.7 # Albumin 3.1 L Globulin 3.60 H Albumin/Globulin Ratio 0.86 Lactic Acid Level 1.0 HIV (1&2) Antibody NEGATIVE Medications Medication Current Medications Sodium Chloride 1,000 ml @ 125 mls/hr Q8H IV Last administered on 06/10/18at 09:58; Admin Dose 125 MLS/HR; Start 06/09/18 at 09:00 Acetaminophen (Tylenol Tab) 500 mg Q4H PRN PO MILD PAIN(1-3)OR ELEVATED TEMP; Start 06/09/18 at 09:00 Ondansetron HCl (Zofran Inj) 4 mg Q6H PRN IV NAUSEA AND/OR VOMITING; Start 06/09/18 at 09:00 Acetaminophen/ Hydrocodone Bitart ([place] (5/325)) 1 tab Q4H PRN PO MODERATE PAIN LEVEL 4-6; Start 06/09/18 at 09:00 Chlorhexidine Gluconate (Peridex) 15 ml BID MT Last administered on 06/10/18at 09:56; Admin Dose 15 ML; Start 06/09/18 at 12:30 Allopurinol (Zyloprim) 300 mg DAILY PO Last administered on 06/10/18at 09:56; Admin Dose 300 MG; Start 06/09/18 at 15:30 Cefepime HCl 50 ml @ 100 mls/hr Q12 IVPB ; Start 06/10/18 at 21:00 Amlodipine Besylate (Norvasc) 2.5 mg DAILY PO ; Start 06/10/18 at 14:30 Atorvastatin Calcium (Lipitor) 40 mg QHS PO ; Start 06/10/18 at 21:00 AVINASH CLEMENT DO Jun 10, 2018 14:52
[2018-06-10] MEDS: ATORVASTATIN 40 MG TAB PO SCH (20:45)
[2018-06-10] MEDS: CEFEPIME 1GM/50 ML (PMX) 50 ML IVPB SCH (20:45)
[2018-06-10 21:14] VITALS: BP 133/77; PULSE 89; RESP 18
--- NOTE | 2018-06-11 00:29 | PN ---
Date/Time of Note Date/Time of Note DATE: 06/11/18 TIME: 00:21 Assessment/Plan VTE Prophylaxis [place] [facility] risk: 2 SCD applied ([place] [facility] No SCD contraindicated: other Pharmacological prophylaxis: other Pharm contraindication: other Lines/Catheters IV Catheter Type (from [facility]): Peripheral IV Assessment/Plan Assessment/Plan - Leucocytosis due to acute AML - ID consult- Dr Johan bean - SP cardiac cath 03/2018; no blockage reported by patient (done when patient has c/o severe fatigue) - Possible UTI -acute kidney injury due to ATN from Tumour lysis- Cr 2.56 -Lung nodule < 6cm on CT - Oncology Consult- Dr Sibley follows - 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- Blast CELLS 20% - Nephrology consult- Dr Lazara Owens follows - Hyperuricemia from tumour lysis - started on Allopurinol by Dr Sibley -Thrombocytopenia -per hematology -Aspirin on hold - Hx Hypertension - resume Amlodipine, hold Losartan 2/2 to elevated Cr - Hx Hyperleptinemia - resume Lovastatin - Current Smoker - Provide smoking cessation Patient seen in collaboration with Dr Haque Result Diagram: 06/10/18 0426 06/10/18 0426 Results 24hrs Laboratory Tests Test 06/10/18 04:26 06/10/18 13:23 White Blood Count 52.8 H Red Blood Count 2.95 L Hemoglobin 9.0 L Hematocrit 28.1 L Mean Corpuscular Volume 95.3 Mean Corpuscular Hemoglobin 30.5 Mean Corpuscular Hemoglobin Concent 32.0 Red Cell Distribution Width 14.5 Platelet Count 91 L Mean Platelet Volume 9.2 Immature Granulocytes % 3.500 H Neutrophils % Segmented Neutrophils % (Manual) 2 L Band Neutrophils % (Manual) 1 Lymphocytes % Lymphocytes % (Manual) 7 L Reactive Lymphocytes % (Manual) 6 H Monocytes % Monocytes % (Manual) 64 H Eosinophils % Basophils % Blast Cells % (Manual) 20.0 H Nucleated Red Blood Cells % 0.1 H Immature Granulocytes # 1.860 H Neutrophils # Neutrophils # (Manual) 1.3 L Band Neutrophils # 0.5 Lymphocytes (Manual) 3.6 H Lymphocytes # Reactive Lymphocytes # 3.1 H Monocytes # Monocytes # (Manual) 33.7 H Eosinophils # Basophils # Nucleated Red Blood Cells # Platelet Estimate DECREASED Polychromasia 1+ Poikilocytosis 1+ Anisocytosis 1+ Microcytosis 1+ Tear Drop Cells 1+ Ovalocytes 1+ Sodium Level 145 H Potassium Level 3.7 Chloride Level 107 Carbon Dioxide Level 30 Anion Gap 8 Blood Urea Nitrogen 14 Creatinine 1.86 H Est Glomerular Filtrat Rate mL/min 40 L Glucose Level 113 Uric Acid < 0.5 #L Calcium Level 8.3 L Total Bilirubin 0.3 Direct Bilirubin 0.00 Indirect Bilirubin 0.3 Aspartate Amino Transf (AST/SGOT) 21 Alanine Aminotransferase (ALT/SGPT) 25 Alkaline Phosphatase 64 Lactate Dehydrogenase 820 H Total Protein 6.7 # Albumin 3.1 L Globulin 3.60 H Albumin/Globulin Ratio 0.86 Lactic Acid Level 1.0 HIV (1&2) Antibody NEGATIVE Subjective 24 Hr Interval Summary Free Text/Dictation 06/10/2018 entry NAD denies any complaint DW with case management associate- possible plan for transfer to [place] for higher level of care. case management associate follows no new events reported last night Eyes: no complaints ENT: no complaints Respiratory: no complaints Cardiovascular: no complaints Gastrointestinal: no complaints Musculoskeletal: no complaints Skin: no complaints Neurologic: no complaints Endocrine: no complaints Lymphatic: no complaints Psychological: nl mood/affect Immunologic: no complaints Exam/Review of Systems Exam Vitals Vital Signs Date Temp Pulse Resp B/P (MAP) Pulse Ox O2 O2 Flow FiO2 Time Delivery Rate 06/10/18 99.4 89 18 133/77 97 Room Air 21:14 (95) Intake and Output 06/10/18 06/10/18 06/11/18 1515:00 23:00 07:00 IntakeIntake Total 560 ml 1025 ml OutputOutput Total 1200 ml BalanceBalance 560 ml -175 ml Constitutional: alert, oriented, well developed Psych: nl mood/affect Head: normocephalic Eyes: nl lids, nl sclera ENMT: nl external ears & nose, other (slighltygum inflammation. no bleeding noted/reported) Neck: non-tender Respiratory: clear to auscultation Cardiovascular: nl pulses, other (s1s2) Gastrointestinal: soft, hepatomegaly, splenomegaly Musculoskeletal: nl extremities to inspection Extremities: normal pulses Neurological: nl mental status, nl speech Skin: ecchymosis Lymph: enlarged Results Results 24hrs Laboratory Tests Test 06/10/18 04:26 06/10/18 13:23 White Blood Count 52.8 H Red Blood Count 2.95 L Hemoglobin 9.0 L Hematocrit 28.1 L Mean Corpuscular Volume 95.3 Mean Corpuscular Hemoglobin 30.5 Mean Corpuscular Hemoglobin Concent 32.0 Red Cell Distribution Width 14.5 Platelet Count 91 L Mean Platelet Volume 9.2 Immature Granulocytes % 3.500 H Neutrophils % Segmented Neutrophils % (Manual) 2 L Band Neutrophils % (Manual) 1 Lymphocytes % Lymphocytes % (Manual) 7 L Reactive Lymphocytes % (Manual) 6 H Monocytes % Monocytes % (Manual) 64 H Eosinophils % Basophils % Blast Cells % (Manual) 20.0 H Nucleated Red Blood Cells % 0.1 H Immature Granulocytes # 1.860 H Neutrophils # Neutrophils # (Manual) 1.3 L Band Neutrophils # 0.5 Lymphocytes (Manual) 3.6 H Lymphocytes # Reactive Lymphocytes # 3.1 H Monocytes # Monocytes # (Manual) 33.7 H Eosinophils # Basophils # Nucleated Red Blood Cells # Platelet Estimate DECREASED Polychromasia 1+ Poikilocytosis 1+ Anisocytosis 1+ Microcytosis 1+ Tear Drop Cells 1+ Ovalocytes 1+ Sodium Level 145 H Potassium Level 3.7 Chloride Level 107 Carbon Dioxide Level 30 Anion Gap 8 Blood Urea Nitrogen 14 Creatinine 1.86 H Est Glomerular Filtrat Rate mL/min 40 L Glucose Level 113 Uric Acid < 0.5 #L Calcium Level 8.3 L Total Bilirubin 0.3 Direct Bilirubin 0.00 Indirect Bilirubin 0.3 Aspartate Amino Transf (AST/SGOT) 21 Alanine Aminotransferase (ALT/SGPT) 25 Alkaline Phosphatase 64 Lactate Dehydrogenase 820 H Total Protein 6.7 # Albumin 3.1 L Globulin 3.60 H Albumin/Globulin Ratio 0.86 Lactic Acid Level 1.0 HIV (1&2) Antibody NEGATIVE Imaging Imaging CT ABDOMEN/PELVIS IMPRESSION: 1. No renal calculi are seen. 2. Hepatosplenomegaly. 3. Borderline sized adenopathy. 4. 0.6 x 0.3 cm right lower lobe pulmonary nodule. Correlation with priors is suggested if available. This may not warrant additional followup if the patient has no risk factors per the Fleischner society guidelines. If the patient has risk factors a followup chest CT is suggested in 12 months. 5. Clinical and laboratory correlation is suggested for signs of lymphoma or other process. Consider follow-up imaging to assess stability as warranted. Medications Medication Current Medications Sodium Chloride 1,000 ml @ 125 mls/hr Q8H IV Last administered on 06/10/18 18:14; Admin Dose 125 MLS/HR; Start 06/09/18 at 09:00 Acetaminophen (Tylenol Tab) 500 mg Q4H PRN PO MILD PAIN(1-3)OR ELEVATED TEMP; Start 06/09/18 at 09:00 Ondansetron HCl (Zofran Inj) 4 mg Q6H PRN IV NAUSEA AND/OR VOMITING; Start 06/09/18 at 09:00 Acetaminophen/ Hydrocodone Bitart ([place] (5/325)) 1 tab Q4H PRN PO MODERATE PAIN LEVEL 4-6; Start 06/09/18 at 09:00 Chlorhexidine Gluconate (Peridex) 15 ml BID MT Last administered on 06/10/18at 20:45; Admin Dose 15 ML; Start 06/09/18 at 12:30 Allopurinol (Zyloprim) 300 mg DAILY PO Last administered on 06/10/18 09:56; Admin Dose 300 MG; Start 06/09/18 at 15:30 Cefepime HCl 50 ml @ 100 mls/hr Q12 IVPB Last administered on 06/10/18 20:45; Admin Dose 100 MLS/HR; Start 06/10/18 at 21:00 Amlodipine Besylate (Norvasc) 2.5 mg DAILY PO ; Start 06/10/18 at 14:30 Atorvastatin Calcium (Lipitor) 40 mg QHS PO Last administered on 06/10/18 20 :45; Admin Dose 40 MG; Start 06/10/18 at 21:00 FRANCESCO RICO Jun 11, 2018 00:29
[2018-06-11] MEDS: SOD CHLORIDE 0.45% 1,000 ML IV SCH ×3 (02:10→12:26)
[2018-06-11 02:32] VITALS: BP 116/65; PULSE 89; RESP 18
[2018-06-11 07:50] VITALS: BP 110/65; PULSE 68; RESP 18
[2018-06-11] MEDS: CHLORHEXIDINE GLUCONATE 15 ML UD CUP MT SCH ×2 (09:19→20:40)
[2018-06-11] MEDS: CEFEPIME 1GM/50 ML (PMX) 50 ML IVPB SCH ×2 (09:21→20:40)
[2018-06-11] MEDS: AMLODIPINE 2.5 MG TAB PO SCH (09:21)
[2018-06-11] MEDS: ALLOPURINOL 300 MG TAB PO SCH (09:21)
--- NOTE | 2018-06-11 09:33 | CONS ---
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 # Acute myeloid leukemia -WBC slightly improved. -Hydrea 2 grams given x 1 to control proliferation of blasts. -Flow cytometry also has confirmed AML with about 30% blasts. -Reviewed smear with Dr. Alan and confirmed it is an AML. -Continue IVF to 175 ccs. -Patient with elevated creatinine and uric acid is in tumor lysis syndrome. Nephrology is on board. -Continue allopurinol and rasburicase has been effective with uric acid < 0.1. -Re-discussed with patient that he will need induction chemotherapy at a higher level of care tertiary center, likely [facility]. Discussed with attending physician at [facility] and call center. area operations manager is on board. -Re-discussed with patient that if he tolerates induction therapy; prognosis is fair and he can be cured with chemotherapy and bone marrow transplant. -Re-discussed that patient also had an increased risk of infection due to acute leukemia. # Tumor lysis syndrome -Creatinine improved, now 1.86. LDH 820 -Continue IVF 175 ccs. -Rasburicase given and effective. -Allopurinol 300 mg po qdaily. -Nephrology on board. -Transfer to higher level of care tertiary center. Thank you to Dr. Bermudez for allowing us to participate in the care of this patient. Please feel free to contact our team for further questions. Consultation Date/Type/Reason Admit Date/Time Jun 09, 2018 at 03:32 Initial Consult Date 06/10/18 Type of Consult oncology Reason for Consultation AML Requesting Provider: FRANCESCO RICO Date/Time of Note DATE: 06/11/18 TIME: 09:28 24 HR Interval Summary Free Text/Dictation patient received rasburicase. Uric acid is no < 0.5. Cr lower as well. Hg and platelets are stable Exam/Review of Systems Exam Vitals Vital Signs Date Temp Pulse Resp B/P (MAP) Pulse Ox O2 O2 Flow FiO2 Time Delivery Rate 06/11/18 98.5 68 18 110/65 99 Room Air 07:50 (80) Intake and Output 06/10/18 06/10/18 06/11/18 1515:00 23:00 07:00 IntakeIntake Total 560 ml 1075 ml 1713 ml OutputOutput Total 1200 ml BalanceBalance 560 ml -125 ml 1713 ml Constitutional: alert, oriented Psych: no complaints Head: normocephalic Eyes: nl conjunctiva ENMT: nl external ears & nose Neck: supple Respiratory: clear to auscultation Cardiovascular: regular rate and rhythm Gastrointestinal: soft Musculoskeletal: nl extremities to inspection Extremities: normal pulses Neurological: GEOPHYSICAL COMPUTER II-XII intact Results Result Diagram: 06/10/18 0426 06/10/18 0426 Results 24hrs Laboratory Tests Test 06/10/18 13:23 Lactic Acid Level 1.0 HIV (1&2) Antibody NEGATIVE Medications Medication Current Medications Sodium Chloride 1,000 ml @ 125 mls/hr Q8H IV Last administered on 06/11/18 03:23; Admin Dose 125 MLS/HR; Start 06/09/18 at 09:00 Acetaminophen (Tylenol Tab) 500 mg Q4H PRN PO MILD PAIN(1-3)OR ELEVATED TEMP Last administered on 06/11/18at 04:17; Admin Dose 500 MG; Start 06/09/18 at 09:00 Ondansetron HCl (Zofran Inj) 4 mg Q6H PRN IV NAUSEA AND/OR VOMITING; Start 06/09/18 at 09:00 Acetaminophen/ Hydrocodone Bitart ([place] (5/325)) 1 tab Q4H PRN PO MODERATE PAIN LEVEL 4-6; Start 06/09/18 at 09:00 Chlorhexidine Gluconate (Peridex) 15 ml BID MT Last administered on 06/11/18 09:19; Admin Dose 15 ML; Start 06/09/18 at 12:30 Allopurinol (Zyloprim) 300 mg DAILY PO Last administered on 06/11/18 09:21; Admin Dose 300 MG; Start 06/09/18 at 15:30 Cefepime HCl 50 ml @ 100 mls/hr Q12 IVPB Last administered on 06/11/18 09:21; Admin Dose 100 MLS/HR; Start 06/10/18 at 21:00 Amlodipine Besylate (Norvasc) 2.5 mg DAILY PO Last administered on 06/11/18 09:21; Admin Dose 2.5 MG; Start 06/10/18 at 14:30 Atorvastatin Calcium (Lipitor) 40 mg QHS PO Last administered on 06/10/18at 20:45; Admin Dose 40 MG; Start 06/10/18 at 21:00 AUDIE ROMREO M.D. Jun 11, 2018 09:33
[2018-06-11 15:07] VITALS: BP 132/77; PULSE 86; RESP 18
--- NOTE | 2018-06-11 15:45 | CONS ---
Assessment/Plan Assessment/Plan Hospital Course (Demo Recall) - Functional neutropenic fever - Acute myeloid leukemia - Tumor lysis syndrome - Leukocytosis 2/2 acute AML - Thrombocytopenia - Possible uti/gum infection; query more likely related to # 2 - 0.6x0.3 cm RLL pulmonary nodule per CT 06/09/18 - Hepatosplenomegaly - DAVE - HTN - HLD Recommendations: - Continue empiric cefipime for now - F/u mrsa screen (pending), blood culture 06/09/18 (NGTD), urine (NGTD) - Pending transfer to higher level of care when bed available. We will continue to follow closely with you Plan was d/w patient and with Dr. Prado. Thank you Consultation Date/Type/Reason Admit Date/Time Jun 09, 2018 at 03:32 Initial Consult Date 06/10/18 Type of Consult ID Requesting Provider: FRANCESCO RICO Date/Time of Note DATE: 06/11/18 TIME: 15:34 24 HR Interval Summary Free Text/Dictation Patient reports that this morning he awoke with pain R lateral cheek and that he could feel a "lump" there. He states that he was given tylenol around 0600 and that the pain dissipated and has not returned since. He still feels the "lump" there. Otherwise patient states "i'm feeling much better." He denied feeling of fevers, chills, night sweats, sob, cp, n/v/d, dysuria, pruritis, rash. The patient is on the phone with his insurance company (on hold) and he states that he has been researching and he heard of [facility] and would like to transfer there if his insurance would cover this. He also said he's asking about [facility]. I mentioned to him that his case managers also assists with coordination of transfers and he said he will ask to talk to her too. There is a plan for patient to transfer to higher level of care. Exam/Review of Systems Exam Vitals Vital Signs Date Temp Pulse Resp B/P (MAP) Pulse Ox O2 O2 Flow FiO2 Time Delivery Rate 06/11/18 98.0 86 18 132/77 99 Room Air 15:07 (95) Intake and Output 06/10/18 06/10/18 06/11/18 1515:00 23:00 07:00 IntakeIntake Total 560 ml 1075 ml 1713 ml OutputOutput Total 1200 ml BalanceBalance 560 ml -125 ml 1713 ml Allergies Coded Allergies No Known Allergy (Unverified06/09/18) Constitutional: alert, oriented, well developed, other (sitting up in a chair at the bedside. ) Psych: no complaints, nl mood/affect, other (per patient thinking positively, states "i'm so glad to have an answer about what's wrong with me, and now I just want the best treatment possible." ) Head: normocephalic, atraumatic Eyes: nl conjunctiva, nl lids, nl sclera ENMT: nl external ears & nose, mucosa pink and moist (no thrush), other (Lower teeth with gingival hyperplasia ) Neck: supple, non-tender, other (left lateral cheek/neck with swelling, lymph node palpable and mobile and nontender superficial parotid area. ) Respiratory: clear to auscultation, normal air movement Cardiovascular: regular rate and rhythm, nl pulses Gastrointestinal: soft, non-tender, bowel sounds (normoactive ) Musculoskeletal: nl extremities to inspection Extremities: normal pulses Neurological: YIELD IMPROVEMENT ENGINEER II-XII intact, nl mental status, nl speech, nl strength Skin: nl turgor; No rash or lesions Lymph: enlarged (Left superficial parotid ) Results Result Diagram: 06/10/18 0426 06/10/18 0426 Results 24hrs Laboratory Tests Test 06/11/18 09:18 Uric Acid 0.9 L Lactate Dehydrogenase 936 H Imaging Imaging Renal US 06/10/18 IMPRESSION: Echogenic kidneys consistent with renal medical disease. Small left renal cyst. No hydronephrosis, calculus or solid mass. Medications Medication Current Medications Sodium Chloride 1,000 ml @ 125 mls/hr Q8H IV Last administered on 06/11/18at 12:26; Admin Dose 125 MLS/HR; Start 06/09/18 at 09:00 Acetaminophen (Tylenol Tab) 500 mg Q4H PRN PO MILD PAIN(1-3)OR ELEVATED TEMP Last administered on 06/11/18at 04:17; Admin Dose 500 MG; Start 06/09/18 at 09:00 Ondansetron HCl (Zofran Inj) 4 mg Q6H PRN IV NAUSEA AND/OR VOMITING; Start 06/09/18 at 09:00 Acetaminophen/ Hydrocodone Bitart ([place] (5/325)) 1 tab Q4H PRN PO MODERATE PAIN LEVEL 4-6; Start 06/09/18 at 09:00 Chlorhexidine Gluconate (Peridex) 15 ml BID MT Last administered on 06/11/18 09:19; Admin Dose 15 ML; Start 06/09/18 at 12:30 Allopurinol (Zyloprim) 300 mg DAILY PO Last administered on 06/11/18 09:21; Admin Dose 300 MG; Start 06/09/18 at 15:30 Cefepime HCl 50 ml @ 100 mls/hr Q12 IVPB Last administered on 06/11/18 09:21; Admin Dose 100 MLS/HR; Start 06/10/18 at 21:00 Amlodipine Besylate (Norvasc) 2.5 mg DAILY PO Last administered on 06/11/18 09:21; Admin Dose 2.5 MG; Start 06/10/18 at 14:30 Atorvastatin Calcium (Lipitor) 40 mg QHS PO Last administered on 06/10/18at 20:45; Admin Dose 40 MG; Start 06/10/18 at 21:00 JANUSZ WILLIS NP Jun 11, 2018 15:44
--- NOTE | 2018-06-11 16:20 | PN ---
Date/Time of Note Date/Time of Note DATE: 06/11/18 TIME: 16:16 Assessment/Plan VTE Prophylaxis Risk score (from Nsg)>0 risk: 2 SCD applied (from Nsg): Yes Pharmacological prophylaxis: NA/contraindicated Pharm contraindication: thrombocytopenia Lines/Catheters IV Catheter Type (from Nrsg): Peripheral IV Assessment/Plan Hospital Course patient complains of difficulty working due to gum problems will change diet to mechanically chopped regular diet, continue IV fluids, pain is adequately controlled patient denies any shortness of breath denies any chest pain Assessment/Plan - Acute myeloid leukemia. Dr. Morris is following in hematology oncology consultation. Pending arrangement for transfer to tertiary care facility today for initiation of for induction of chemotherapy. - Tumor lysis syndrome. Continue allopurinol and rasburicase in, continue IV fluids. Further recommendations based on clinical course. Plan of care discussed with Dr. Bermudez. Result Diagram: 06/10/18 0426 06/10/18 0426 Results 24hrs Laboratory Tests Test 06/11/18 09:18 Uric Acid 0.9 L Lactate Dehydrogenase 936 H Exam/Review of Systems Exam Vitals Vital Signs Date Temp Pulse Resp B/P (MAP) Pulse Ox O2 O2 Flow FiO2 Time Delivery Rate 06/11/18 98.0 86 18 132/77 99 Room Air 15:07 (95) Intake and Output 06/10/18 06/10/18 06/11/18 1515:00 23:00 07:00 IntakeIntake Total 560 ml 1075 ml 1713 ml OutputOutput Total 1200 ml BalanceBalance 560 ml -125 ml 1713 ml Constitutional: alert, oriented Respiratory: clear to auscultation Cardiovascular: nl pulses Gastrointestinal: soft, non-tender Musculoskeletal: nl extremities to inspection Extremities: normal pulses Results Results 24hrs Laboratory Tests Test 06/11/18 09:18 Uric Acid 0.9 L Lactate Dehydrogenase 936 H Medications Medication Current Medications Sodium Chloride 1,000 ml @ 125 mls/hr Q8H IV Last administered on 06/11/18at 12:26; Admin Dose 125 MLS/HR; Start 06/09/18 at 09:00 Acetaminophen (Tylenol Tab) 500 mg Q4H PRN PO MILD PAIN(1-3)OR ELEVATED TEMP Last administered on 06/11/18at 04:17; Admin Dose 500 MG; Start 06/09/18 at 09:00 Ondansetron HCl (Zofran Inj) 4 mg Q6H PRN IV NAUSEA AND/OR VOMITING; Start at 09:00 Acetaminophen/ Hydrocodone Bitart ([place] (5/325)) 1 tab Q4H PRN PO MODERATE PAIN LEVEL 4-6; Start 06/09/18 at 09:00 Chlorhexidine Gluconate (Peridex) 15 ml BID MT Last administered on 06/11/18 09:19; Admin Dose 15 ML; Start 06/09/18 at 12:30 Allopurinol (Zyloprim) 300 mg DAILY PO Last administered on 06/11/18 09:21; Admin Dose 300 MG; Start 06/09/18 at 15:30 Cefepime HCl 50 ml @ 100 mls/hr Q12 IVPB Last administered on 06/11/18 09:21; Admin Dose 100 MLS/HR; Start 06/10/18 at 21:00 Amlodipine Besylate (Norvasc) 2.5 mg DAILY PO Last administered on 06/11/18 09:21; Admin Dose 2.5 MG; Start 06/10/18 at 14:30 Atorvastatin Calcium (Lipitor) 40 mg QHS PO Last administered on 06/10/18 20:45; Admin Dose 40 MG; Start 06/10/18 at 21:00 RICHIE CARRIZALES Jun 11, 2018 16:19
--- NOTE | 2018-06-11 16:48 | CONS ---
Assessment/Plan Assessment/Plan Assessment/Plan (Daily) 1. acute kidney injury due to ATN from Tumour lysis 2. Hyperuricemia from tumour lysis 3. Possible UTI 4. 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 Leucocytosis due to acute AML 6. h/O HTN 7. H/o HL Plan: WBC 52.8- possible AML with Tumour lysis syndrome, Upgraded to higher level of care- possible transfer to [facility] s/p Rasburicase, on Allopurnol, Uric acid improved to very low level 0.9 Na 145, BUN/Cr slightly better 14/1.86- no labs today to review yet Renal US showed Echogenic kidneys consistent with renal medical disease. Small left renal cyst. No hydronephrosis, calculus or solid mass. will follow up Consultation Date/Type/Reason Admit Date/Time Jun 09, 2018 at 03:32 Initial Consult Date 06/09/18 Type of Consult NEPHROLOGY Requesting Provider: FRANCESCO RICO Date/Time of Note DATE: 06/11/18 TIME: 16:48 24 HR Interval Summary Free Text/Dictation No acute events, BUn/cr slightly better, no labs today to review yet, possible transfer to [facility] Exam/Review of Systems Exam Vitals Vital Signs Date Temp Pulse Resp B/P (MAP) Pulse Ox O2 O2 Flow FiO2 Time Delivery Rate 06/11/18 98.0 86 18 132/77 99 Room Air 15:07 (95) Intake and Output 06/10/18 06/10/18 06/11/18 1515:00 23:00 07:00 IntakeIntake Total 560 ml 1075 ml 1713 ml OutputOutput Total 1200 ml BalanceBalance 560 ml -125 ml 1713 ml Exam Constitutional: alert, awake, on acute distress Respiratory: clear to auscultation, normal air movement, diminished breath sounds Cardiovascular: regular rate and rhythm, nl pulses Gastrointestinal: soft, non-tender Musculoskeletal: nl extremities to inspection, muscle weakness Extremities: normal pulses Neurological: METAL ROOFER II-XII intact, nl mental status, nl speech, nl strength Results Result Diagram: 06/10/1842506/10/18425 Results 24hrs Laboratory Tests Test 06/11/18 09:18 Uric Acid 0.9 L Lactate Dehydrogenase 936 H Medications Medication Current Medications Sodium Chloride 1,000 ml @ 125 mls/hr Q8H IV Last administered on 06/11/18 12:26; Admin Dose 125 MLS/HR; Start 06/09/18 at 09:00 Acetaminophen (Tylenol Tab) 500 mg Q4H PRN PO MILD PAIN(1-3)OR ELEVATED TEMP Last administered on 06/11/18 04:17; Admin Dose 500 MG; Start 06/09/18 at 09:00 Ondansetron HCl (Zofran Inj) 4 mg Q6H PRN IV NAUSEA AND/OR VOMITING; Start 06/09/18 at 09:00 Acetaminophen/ Hydrocodone Bitart ([place] (5/325)) 1 tab Q4H PRN PO MODERATE PAIN LEVEL 4-6; Start 06/09/18 at 09:00 Chlorhexidine Gluconate (Peridex) 15 ml BID MT Last administered on 06/11/18 09:19; Admin Dose 15 ML; Start 06/09/18 at 12:30 Allopurinol (Zyloprim) 300 mg DAILY PO Last administered on 06/11/18 09:21; Admin Dose 300 MG; Start 06/09/18 at 15:30 Cefepime HCl 50 ml @ 100 mls/hr Q12 IVPB Last administered on 06/11/18 09:21; Admin Dose 100 MLS/HR; Start 06/10/18 at 21:00 Amlodipine Besylate (Norvasc) 2.5 mg DAILY PO Last administered on 06/11/18 09:21; Admin Dose 2.5 MG; Start 06/10/18 at 14:30 Atorvastatin Calcium (Lipitor) 40 mg QHS PO Last administered on 06/10/18at 20:45; Admin Dose 40 MG; Start 06/10/18 at 21:00 JORDAN ELENA MD Jun 11, 2018 16:48
[2018-06-11 19:54] VITALS: BP 137/75; PULSE 96; RESP 18
[2018-06-11] MEDS: ATORVASTATIN 40 MG TAB PO SCH (20:40)
== END 2018-06-11 23:30 | disposition designated cancer center or children's hospital (05) | DRG 683 ==
LOC: FTE 19:44 → MS1 06-09 03:32
PROVIDERS: ADMIT Internal Medicine; ATTEND Internal Medicine
DX: N17.0 Acute kidney failure with tubular necrosis (principal); C92.00 Acute myeloblastic leukemia, not having achieved remission; D70.8 Other neutropenia; E88.3 Tumor lysis syndrome; I10 Essential (primary) hypertension; E78.5 Hyperlipidemia, unspecified; R91.1 Solitary pulmonary nodule; D69.6 Thrombocytopenia, unspecified; F17.200 Nicotine dependence, unspecified, uncomplicated; E79.0 Hyperuricemia without signs of inflammatory arthritis and tophaceous disease; R50.81 Fever presenting with conditions classified elsewhere; R16.2 Hepatomegaly with splenomegaly, not elsewhere classified; K04.7 Periapical abscess without sinus; I25.2 Old myocardial infarction; Z79.82 Long term (current) use of aspirin
CPT/HCPCS: 74176; 76775; 80053; 81001; 81003; 83605; 83615; 83690; 84300; 84484; 84560; 85025; 85610; 85730; 86703; 87081; 87086; 87400; 89190; 93005; J0692; J0696; J2783; J7030